=== PATIENT | female | born 1995 | race African-American/Black ===

== ENCOUNTER 2017-02-02 18:11 | Emergency (ER) | payer MEDICAID, OTHER ==
[2017-02-02 18:23] VITALS: BP 121/59
[2017-02-02] MEDS ORDERED: KETOROLAC TROMETHAMINE 60 MG/2 ML VIAL IM ONE ×2 (18:58→19:03)
[2017-02-02] MEDS ORDERED: CLINDAMYCIN PHOSPHATE 150 MG/ML VIAL IM ONE (18:58)
--- NOTE | 2017-02-02 19:07 | ERNOTE ---
Medical Problem HPI - Narrative Date of Service: 02/02/17 - General Chief Complaint: General Assessment Time Seen by Provider: 02/02/17 18:52 Source: patient Exam Limitations: no limitations - Immun/Allergies/Home Medications Immunizations: IMMUNIZATION HX Immunizations Up to Date Yes History of Influenza Vaccine Yes Allergies/Adverse Reactions: Allergies No Known Allergies Allergy (Verified 02/02/17 18:24) Home Medications: HOME MEDICATIONS Clindamycin HCl [Cleocin HCl] 300 mg PO Q6H #40 capsule 02/02/17 [Last Taken Unknown] Naproxen [Naprosyn] 500 mg PO BID PRN #60 tab 02/02/17 [Last Taken Unknown] - History of Present History Narrative: Pt. comes in with L mandibular pain and a lump behind her L ear on the L side. Pt. states that this has been bothering her for a week. Pt. denies any SOB, CP , NVD, but does state that she had a a recent illness with a sore throat and rhinorrhea, which pt. states has improved but she feels that she is having swelling in her throat still. Review of Systems - Review of Systems Constitutional: Present: no symptoms reported. Absent: recent illness, fever, chills, weakness, fatigue EYE: Present: no symptoms reported ENT: Present: other - painful lump behind L ear Respiratory: Present: no symptoms reported. Absent: shortness of breath, cough , orthopnea, wheezing Cardiology: Present: no symptoms reported. Absent: chest pain, palpitations Gastrointestinal/Abdominal: Present: no symptoms reported. Absent: nausea, vomiting, diarrhea Genitourinary: Present: no symptoms reported Musculoskeletal: Present: no symptoms reported. Absent: back pain, joint pain Skin: Present: lumps - behind L ear Neurological: Present: no symptoms reported. Absent: headache, dizziness/light- headedness, numbness, tingling All Other Systems: All systems neg except as marked - Patient's Past Medical History Patient History - Medical: Seizures Patient History - Cardiac/Respiratory: No pertinent hx Patient History - Cancer: No Hx of Cancer Patient History - Surgical Procedures: No surgical history - Social History Living Situations: home Smoking Status: Never smoker Patient requests Smoking Cessation Consult: No Initiate information on Smoking Cessation: No Alcohol Use: occasionally Drug Use: none - Immunizations Immunizations Up to Date: Yes History of Influenza Vaccine: Yes Physical Exam - Physical Exam General Appearance: Present: wd/wn, alert, no apparent distress Eye Exam: Normal inspection: bilateral, PERRL: bilateral, EOMI: bilateral Ears, Nose, Throat: Present: normal pharynx, other - dental fractures and caries L mandible with swelling of L mandible Neck: Present: lymphadenopathy (L) - post auricular lymphadenopathy. Respiratory: Present: no respiratory distress, normal breath sounds, no accessory muscle use, chest nontender, lungs clear Cardiovascular/Chest: Present: regular rate, rhythm, no murmur, normal peripheral pulses Gastrointestinal/Abdominal: Present: normal bowel sounds, nontender, nondistended, soft, no organomegaly Neurological Exam: Present: alert, oriented, normal mood/affect, no motor/ sensory deficits Skin Exam: Present: normal color, warm/dry. Absent: skin rash ED Progress - Vital Signs Patient's Vital Signs:: I have reviewed the patient's vital signs. Vital Signs: Vital Signs 02/02/17 18:19 Temperature 37 C Pulse Rate 81 Respiratory 20 Rate Blood Pressure 121/59 O2 Sat by Pulse 98 Oximetry - Progress/Reassessment Chief Complaint: General Assessment Departure - Departure Clinical Impression: Tooth abscess Disposition: Home self-care Condition: Good Instructions: Dental Abscess, [id number] Additional Instructions: Please follow up with dentist in 2-3 days. Prescriptions: Clindamycin HCl [Cleocin HCl] 300 mg PO Q6H #40 capsule Naproxen [Naprosyn] 500 mg PO BID PRN #60 tab PRN Reason: Pain
--- OUTSIDE RECORDS SUMMARY | 2017-02-02 19:18 | XMS REPORT | Continuity of Care Document ---
:1995 Author Organization [facility] ([facility]) Address [address] [place] [address] Phone [phone] Care Team Providers Name Role Phone Unavailable Primary Care Provider Unavailable Source Comments This disclosure is being made pursuant to the Care Everywhere program, applicable federal and state laws, and may not contain all informaitonavailable regarding this patient.[facility] ([facility]) Active Allergies and Adverse Reactions No Active Allergies Current Medications Not on file Active Problems Not on file Social History Tobacco Use Types Packs/Day Years Used Date Never Assessed Last Filed Vital Signs Vital Sign Reading Time Taken Blood Pressure 104/53 03/19/2004 2:50 PM CDT Pulse 72 03/19/2004 2:50 PM CDT Temperature 36.2 C (97.16 F) 03/19/2004 2:50 PM CDT Respiratory Rate 20 03/19/2004 2:50 PM CDT Height 1.398 m (4' 7.03") 03/19/2004 2:50 PM CDT Weight 41.899 kg (92 lb 5.9 oz) 03/19/2004 2:50 PM CDT Body Mass Index 21.44 03/19/2004 2:50 PM CDT Oxygen Saturation - - Plan of Care Health Maintenance Due Date Last Done Comments Hepatitis B Vaccine (1 of 3 - Primary Series) 1995 HPV Vaccine (1 of 3 - Female/Unknown 3 Dose Series) 2006 Tdap Vaccine 2006 Meningococcal Vaccine (1 of 1) 2011 Cervical Cancer Screening 2013 Lipid Disorder Screening 2013 MMR Vaccine 2013 Td Vaccine 2013 Varicella Vaccine (1 of 2 - Adult - No Evidence of 2013 Immunity) Influenza Vaccine: Seasonal (#1) 06/03/2016 Results from Last 3 Months Not on file
== END 2017-02-02 19:45 | disposition home or self-care (01) ==
LOC: ER 18:11
DX: K04.7 Periapical abscess without sinus (principal)

== ENCOUNTER 2017-02-07 19:25 | Emergency (ER) | payer OTHER ==
--- NOTE | 2017-02-07 20:11 | ERNOTE ---
Integumentary HPI - Narrative Date of Service: 02/07/17 - General Presenting Symptoms: rash - diffuse Time Seen by Provider: 02/07/17 20:10 Source: patient, other - significant other Exam Limitations: no limitations - Immun/Allergies/Home Medications Immunizations: IMMUNIZATION HX Immunizations Up to Date Yes History of Influenza Vaccine Yes Hx Pneumococcal Vaccination No Allergies/Adverse Reactions: Allergies Allergy/AdvReac Type Severity Reaction Status Date / Time No Known Allergies Allergy Verified 02/07/17 19:44 Home Medications: HOME MEDICATIONS Clindamycin HCl [Cleocin HCl] 300 mg PO Q6H #40 capsule 02/02/17 [Last Taken Unknown] Naproxen [Naprosyn] 500 mg PO BID PRN #60 tab 02/02/17 [Last Taken Unknown] Iron 18 mg PO DAILY 02/07/17 [Last Taken Unknown] Medroxyprogesterone Acetate [Depo-Provera Contraceptive] 150 mg IM Q3M 02/07/17 [Last Taken 12/04/16] Pnv95/Iron Fum/Folic Acid [ Tablet] 1 each PO DAILY 02/07/17 [Last Taken Unknown] Ranitidine HCl [Acid Railcar Brake Operator] 150 mg PO BID #30 tablet 02/07/17 [Last Taken Unknown] - History of Present Illness Narrative: Patient denies any untoward exposures and no pet exposures, no new products medication or topical or food exposures. Date (Duration): 02/04/17 Time (Timing): 08:00 Location: Reports: generalized Quality: Reports: itching - small papular lesions on arms, legs and torso spares hands Severity: mild Exposure: Reports: no cause identified. Denies: insect bite/spider - no pets in home, recent move to this new location, + ant problem Modifying Factors - (Improves): Reports: nothing Modifying Factors - (Worsens): Reports: nothing Associated Symptoms: Reports: rash Review of Systems - Narrative Narrative: New onset rash, Gaby and 1 other person in home has rash - Review of Systems Constitutional: Present: no symptoms reported EYE: Present: no symptoms reported ENT: Present: no symptoms reported Respiratory: Present: no symptoms reported Cardiology: Present: no symptoms reported Gastrointestinal/Abdominal: Present: no symptoms reported Genitourinary: Present: no symptoms reported, other - no lmp this month Musculoskeletal: Present: no symptoms reported Skin: Present: See HPI, rash Neurological: Present: no symptoms reported Endocrine: Present: no symptoms reported Hematologic/Lymphatic: Present: no symptoms reported Psych: Present: no symptoms reported All Other Systems: All systems neg except as marked - Narrative Narrative: Last lmp was January and now none Last Depoprovera was DecMarch 04. Denies other symptoms - Patient's Past Medical History Patient History - Medical: No pertinent hx, Seizures Patient History - Cardiac/Respiratory: No pertinent hx Patient History - Cancer: No Hx of Cancer Patient History - Surgical Procedures: No surgical history Patient History - Other: None LMP (females 10-50): 4 months - Social History Living Situations: home Psych History: No pertinent hx Smoking Status: Former smoker Have you smoked in the past 12 months: No Do you dip or chew tobacco: No Alcohol Use: occasionally Drug Use: none - Immunizations Immunizations Up to Date: Yes Hx Pneumococcal Vaccination: No History of Influenza Vaccine: Yes Physical Exam - Physical Exam General Appearance: Present: wd/wn, alert, no apparent distress Eye Exam: Normal inspection: bilateral, PERRL: bilateral, EOMI: bilateral Ears, Nose, Throat: Present: normal ENT inspection, normal pharynx Neck: Present: normal inspection, nontender Respiratory: Present: no respiratory distress, normal breath sounds, no accessory muscle use Cardiovascular/Chest: Present: regular rate, rhythm, no murmur Gastrointestinal/Abdominal: Present: normal bowel sounds, nontender, nondistended, soft Rectal Exam: Present: deferred Back Exam: Present: normal inspection Extremity Exam: Present: normal inspection, other - mild rash noted small red papular lesions noted Skin Exam: Present: normal color, warm/dry, skin rash - small papular rashes , other - no hives Pelvic Exam: Present: deferred ED Progress - Date and Time Seen: Date and Time: 02/07/17 20:30 Urine [facility] incase patient needs steroids - Results and Orders Patient's Lab Results:: I have reviewed the patient's lab results. Results and Orders: hcg : negative - Vital Signs Patient's Vital Signs:: I have reviewed the patient's vital signs. Vital Signs: Vital Signs 02/07/17 19:39 Temperature 36.0 C L Pulse Rate 88 Respiratory 18 Rate Blood Pressure 106/50 O2 Sat by Pulse 99 Oximetry - Progress/Reassessment Chief Complaint: Rash Progress:: Unchanged Plan - Plan Plan: Patient is stable for discharge : Recommended benadryl 25 mg to 50 mg Q6 hours prn itching or zantac 150mg BID HCG is negative no concerns for use of above medications. Departure Clinical Impression: Papular atopic dermatitis - Departure Disposition: Home self-care Condition: Good Instructions: Contact Dermatitis, [id number] Print Language: Italian Prescriptions: Ranitidine HCl [Acid Railcar Brake Operator] 150 mg PO BID #30 tablet
--- OUTSIDE RECORDS SUMMARY | 2017-02-07 20:28 | XMS REPORT | Continuity of Care Document ---
:1995 Author Organization [facility] ([facility]) Address [address] [place] [address] Phone [phone] Care Team Providers Name Role Phone Unavailable Primary Care Provider Unavailable Source Comments This disclosure is being made pursuant to the Care Everywhere program, applicable federal and state laws, and may not contain all informaitonavailable regarding this patient.[facility] ([facility]) Active Allergies and Adverse Reactions No [...]
[2017-02-07 21:41] VITALS: BP 106/73
== END 2017-02-07 20:40 | disposition home or self-care (01) ==
LOC: ER 19:25
DX: L20.89 Other atopic dermatitis (principal); Z87.891 Personal history of nicotine dependence

== ENCOUNTER 2017-06-07 18:12 | Emergency (ER) | payer OTHER ==
--- NOTE | 2017-06-07 18:40 | ERNOTE ---
Abdominal HPI - General Chief Complaint: Abdominal Pain Time Seen by Provider: 06/07/17 18:12 Source: patient Exam Limitations: no limitations - Immun/Allergies/Home Medications Immunizatons: IMMUNIZATION HX Immunizations Up to Date Yes History of Influenza Vaccine Yes Hx Pneumococcal Vaccination No Allergies/Adverse Reactions: Allergies No Known Allergies Allergy (Verified 06/07/17 18:22) Home Medications: HOME MEDICATIONS Naproxen [Naprosyn] 500 mg PO BID PRN #10 tablet 06/07/17 [Last Taken Unknown] - History of Present Illness Narrative: Here for heavy vaginal bleeding with clots. Denies any dizziness. Is not sure if she is Review of Systems - Review of Systems Constitutional: Present: no symptoms reported Respiratory: Present: no symptoms reported Cardiology: Present: no symptoms reported Gastrointestinal/Abdominal: Present: See HPI Genitourinary: Present: See HPI Musculoskeletal: Present: no symptoms reported Skin: Present: no symptoms reported - Patient's Past Medical History Patient History - Medical: No pertinent hx, Seizures Patient History - Cardiac/Respiratory: No pertinent hx Patient History - Cancer: No Hx of Cancer Patient History - Surgical Procedures: No surgical history Patient History - Other: None LMP (females 10-50): now - Social History Living Situations: home Abuse History: No History of abuse Psych History: No pertinent hx Smoking Status: Never smoker Alcohol Use: none Drug Use: none - Immunizations Immunizations Up to Date: Yes Hx Pneumococcal Vaccination: No History of Influenza Vaccine: Yes Physical Exam - Physical Exam General Appearance: Present: wd/wn, alert, no apparent distress Respiratory: Present: no respiratory distress, normal breath sounds, lungs clear Cardiovascular/Chest: Present: regular rate, rhythm, no murmur ED Progress - Results and Orders Patient's Lab Results:: I have reviewed the patient's lab results. - Vital Signs Patient's Vital Signs:: I have reviewed the patient's vital signs. Vital Signs: Vital Signs 06/07/17 06/07/17 18:17 18:30 Temperature 36.7 C Pulse Rate 81 72 Respiratory 16 Rate Blood Pressure 122/66 O2 Sat by Pulse 100 Oximetry - Progress/Reassessment Chief Complaint: Abdominal Pain Plan - Plan Plan: This patient's test is negative. Her hemoglobin and hematocrit is stable she does not have orthostatic hypotension and blood pressure lockhart she is stable. She is having a heavy period for which she will be given Naprosyn. Departure - Departure Clinical Impression: Menorrhagia Qualifiers: Menorrahagia type: with regular cycle Qualified Code(s): N92.0 - Excessive and frequent menstruation with regular cycle Disposition: Home self-care Condition: Good Instructions: Menorrhagia, Menorrhagia, [id number] Prescriptions: Naproxen [Naprosyn] 500 mg PO BID PRN #10 tablet PRN Reason: Pain
[2017-06-07 18:46] LABS: Hematocrit 38.8 % (37.0-47.0); Hemoglobin 12.2 gm/dL (12.5-16.0); Mean Cell Volume 82.9 fl (78-100); Mean Corpuscular Hemoglobin 26.1 pg (27-31); Mean Corpuscular Hgb Conc 31.4 g/dl (32-36); Mean Platelet Volume 11.3 fl (6.0-9.5); Neutrophil # 5.7 K/mm3 (1.3-6.0); Neutrophil % 64.2 % (42-75.0); Platelet Count 172 K/mm3 (150-450); Red Blood Count 4.68 M/mm3 (4.2-5.4); Red Cell Distribution Width 13.2 % (11.5-14.0); White Blood Count 8.8 K/mm3 (4.0-10.5)
[2017-06-07 21:54] VITALS: BP 124/70
== END 2017-06-07 19:13 | disposition home or self-care (01) ==
LOC: ER 18:12
DX: N92.0 Excessive and frequent menstruation with regular cycle (principal)

== ENCOUNTER 2017-07-16 13:03 | Emergency (ER) | payer OTHER ==
[2017-07-16 13:46] VITALS: BP 119/84
[2017-07-16 13:57] LABS: Urine Bilirubin Negative (NEGATIVE); Urine Blood Negative /ul (NEGATIVE); Urine Ketone 50 mg/dL (NEGATIVE); Urine Nitrite Negative (NEGATIVE); Urine Protein Negative (NEGATIVE); Urine Specific Gravity 1.025 SP.GR. (1.005-1.010); Urine Urobilinogen Normal (NORMAL)
--- NOTE | 2017-07-16 14:02 | ERNOTE ---
Abdominal HPI - Narrative Date of Service: 07/16/17 - General Chief Complaint: Abdominal Pain Time Seen by Provider: 07/16/17 13:37 Source: patient Exam Limitations: no limitations - Immun/Allergies/Home Medications Immunizatons: IMMUNIZATION HX Immunizations Up to Date Yes History of Influenza Vaccine Yes Hx Pneumococcal Vaccination No Allergies/Adverse Reactions: Allergies No Known Allergies Allergy (Verified 07/16/17 13:40) Home Medications: HOME MEDICATIONS NK [No Home Medication] 07/16/17 [Last Taken Unknown] - History of Present Illness Narrative: Pt. comes i with c/o LUQ pain and B flank pain that radiates to her back. Pt. states tath she has had this pain for 2 months and that she has not had a period in over a month and that she was nauseated until she took a test on Friday and it noted that she ws . Pt. denies any bleeding or discharge, fever, diarrhea, SOB, or CP. Pt. denies any aggravating factors but staes tath eating alleviates the pain. Review of Systems - Review of Systems Constitutional: Present: no symptoms reported. Absent: recent illness, fever, chills, weakness, fatigue, malaise EYE: Present: no symptoms reported ENT: Present: no symptoms reported Respiratory: Present: no symptoms reported. Absent: shortness of breath, cough , wheezing Cardiology: Present: no symptoms reported. Absent: chest pain, palpitations, edema Gastrointestinal/Abdominal: Present: nausea, vomiting, abdominal pain. Absent: diarrhea, constipation, eating less, drinking less Genitourinary: Present: no symptoms reported. Absent: frequency, decreased urinary output Musculoskeletal: Present: back pain - B flank Skin: Present: no symptoms reported. Absent: rash, change in color Neurological: Present: no symptoms reported All Other Systems: All systems neg except as marked - Patient's Past Medical History Patient History - Medical: Seizures Patient History - Cardiac/Respiratory: No pertinent hx Patient History - Cancer: No Hx of Cancer Patient History - Surgical Procedures: No surgical history Patient History - Other: None - Social History Living Situations: home Abuse History: No History of abuse Psych History: No pertinent hx Smoking Status: Never smoker Have you smoked in the past 12 months: No Alcohol Use: none Drug Use: none - Immunizations Immunizations Up to Date: Yes Hx Pneumococcal Vaccination: No History of Influenza Vaccine: Yes Physical Exam - Physical Exam General Appearance: Present: wd/wn, alert, no apparent distress Head Exam: Present: normal inspection, no evidence of injury Eye Exam: Normal inspection: bilateral, PERRL: bilateral, EOMI: bilateral Ears, Nose, Throat: Present: normal ENT inspection, normal pharynx Neck: Present: normal inspection, nontender. Absent: lymphadenopathy (R), lymphadenopathy (L) Respiratory: Present: no respiratory distress, normal breath sounds, no accessory muscle use, chest nontender, lungs clear Cardiovascular/Chest: Present: regular rate, rhythm, no murmur, normal peripheral pulses Gastrointestinal/Abdominal: Present: normal bowel sounds, nondistended, soft, no organomegaly, tenderness - LUQ Back Exam: Present: normal inspection, normal range of motion, no CVA tenderness , no vertebral tenderness Extremity Exam: Present: normal inspection, non-tender, normal range of motion, no edema Neurological Exam: Present: alert, oriented, normal mood/affect, no motor/ sensory deficits Skin Exam: Present: normal color, warm/dry. Absent: pallor, skin rash ED Progress - Date and Time Seen: Date and Time: 07/16/17 14:52 pt. unhappy that I am waiting for lab test to perform ultrasound because she "has things to do" and she just wanted a test and ultrasound. Tried explaining to pt. that I needed Beta HCG levels to determine if Ultrasound would be useful and then I would decide if she needed ultrasound but if her Beta HCG levels noted that she is enough for a possible ectopic complication that I would perform an ultrasound to rule this out. But pt. insists on leaving. Signed out AMA. - Vital Signs Patient's Vital Signs:: I have reviewed the patient's vital signs. Vital Signs: Vital Signs 07/16/17 13:35 Temperature 36.3 C L Pulse Rate 86 Respiratory 14 Rate Blood Pressure 119/84 O2 Sat by Pulse 98 Oximetry - Progress/Reassessment Chief Complaint: Abdominal Pain Departure - Departure Clinical Impression: Abdominal pain affecting , antepartum Disposition: Against medical advice
[2017-07-16] MEDS ORDERED: MAG HYDROX/ALUMINUM HYD/SIMETH 30 ML UDC PO ONE (14:03)
[2017-07-16 14:21] LABS: Hematocrit 37.6 % (37.0-47.0); Hemoglobin 12.4 gm/dL (12.5-16.0); Mean Cell Volume 80.9 fl (78-100); Mean Corpuscular Hemoglobin 26.7 pg (27-31); Mean Platelet Volume 10.9 fl (6.0-9.5); Neutrophil # 5.3 K/mm3 (1.3-6.0); Neutrophil % 66.2 % (42-75.0); Platelet Count 181 K/mm3 (150-450); Red Blood Count 4.65 M/mm3 (4.2-5.4); Red Cell Distribution Width 13.3 % (11.5-14.0)
[2017-07-16 14:27] LABS: Urine Appearance Slightly Cloudy; Urine Bacteria 4+; Urine Color Yellow; Urine RBC None Seen /hpf (0-5); Urine WBC None Seen /hpf (0-5)
[2017-07-16 14:33] LABS: Albumin * 3.9 gm/dl (3.4-5.0); Anion Gap 15.1 mmol/L (6.8-13.8); BUN/Creatinine Ratio 14.5 (9.0-21.6); Bilirubin, Total 0.4 mg/dL (0.0-1.1); Ca. Corrected For Albumin 8.8 mg/dL (8.4-10.2); Carbon Dioxide 22.5 mmol/L (24-32.6); Potassium 3.6 mmol/L (3.4-4.6); Total Protein 7.9 gm/dL (6.2-8.2)
== END 2017-07-16 14:53 | disposition left against medical advice (07) ==
LOC: ER 13:03
DX: O26.899 Other specified pregnancy related conditions, unspecified trimester (principal); R10.9 Unspecified abdominal pain; Z53.29 Procedure and treatment not carried out because of patient's decision for other reasons; Z3A.00 Weeks of gestation of pregnancy not specified

== ENCOUNTER 2017-07-20 14:53 | Emergency (ER) | payer OTHER ==
[2017-07-20] MEDS ORDERED: BISACODYL 10 MG SUPP.RECT RC ONE ×2 (15:27→15:33)
--- NOTE | 2017-07-20 15:39 | ERNOTE ---
Abdominal HPI - Narrative Date of Service: 07/20/17 - General Chief Complaint: Abdominal Pain Time Seen by Provider: 07/20/17 15:15 Source: patient - Immun/Allergies/Home Medications Immunizatons: IMMUNIZATION HX Immunizations Up to Date Yes History of Influenza Vaccine Yes Hx Pneumococcal Vaccination No Allergies/Adverse Reactions: Allergies No Known Allergies Allergy (Verified 07/20/17 15:13) Home Medications: HOME MEDICATIONS NK [No Home Medication] 07/16/17 [Last Taken Unknown] - History of Present Illness Narrative: patient states she has 3 episodes of a cramp below her left rib cage today, she states cramping last about 20-30 second and then disappears. She also states that she has only had 1 small hard BM in the last 3 days. patient states it was 3 small little balls that she was able to pass. patient states she needs to drink more water. patient states she sat on the toilet for 15 in order to have a BM and nothing happened today. patient told me she may be constipated but is unsure of what she can have because she found out recently she was . Date (Duration): 07/20/17 - Timing: intermittent Quality: cramping Activities at Onset: none Modifying Factors - (Improves): Present: defecating Associated Symptoms: Present: denies symptoms Prior Abdominal Problems: Present: none Review of Systems - Review of Systems Constitutional: Present: no symptoms reported EYE: Present: no symptoms reported ENT: Present: no symptoms reported Respiratory: Present: no symptoms reported Cardiology: Present: no symptoms reported Gastrointestinal/Abdominal: Present: See HPI, constipation, drinking less Genitourinary: Present: no symptoms reported Musculoskeletal: Present: no symptoms reported Skin: Present: no symptoms reported Neurological: Present: no symptoms reported Endocrine: Present: no symptoms reported Hematologic/Lymphatic: Present: no symptoms reported Psych: Present: no symptoms reported All Other Systems: All systems neg except as marked - Patient's Past Medical History Patient History - Medical: Seizures Patient History - Cardiac/Respiratory: No pertinent hx Patient History - Cancer: No Hx of Cancer Patient History - Surgical Procedures: No surgical history Patient History - Other: None LMP (females 10-50): 2 months - Social History Living Situations: alone Abuse History: No History of abuse Psych History: No pertinent hx Smoking Status: Never smoker Have you smoked in the past 12 months: No Do you dip or chew tobacco: No Alcohol Use: none Drug Use: none - Immunizations Immunizations Up to Date: Yes Hx Pneumococcal Vaccination: No History of Influenza Vaccine: Yes Physical Exam - Physical Exam General Appearance: Present: wd/wn, alert, no apparent distress Head Exam: Present: normal inspection, no evidence of injury Eye Exam: Normal inspection: bilateral Ears, Nose, Throat: Present: normal ENT inspection, normal pharynx Neck: Present: normal inspection, nontender, supple, full range of motion Respiratory: Present: no respiratory distress, normal breath sounds, no accessory muscle use, chest nontender, lungs clear Cardiovascular/Chest: Present: regular rate, rhythm, no murmur, normal peripheral pulses Peripheral Pulses: N=norm/S=strong/W=weak/B=bound/A=absent: Radial (R): Normal, Radial (L): Normal, Dorsalis-pedis (R): Normal, Dorsalis-pedis (L): Normal Gastrointestinal/Abdominal: Present: nontender, nondistended, soft, no organomegaly, abnormal bowel sounds - hypoactive. Absent: guarding, rebound, McBurney sign, Obturator sign, Niño sign, Psoas sign Rectal Exam: Present: nontender, normal rectal tone Back Exam: Present: normal inspection, normal range of motion, no CVA tenderness , no vertebral tenderness Extremity Exam: Present: normal inspection, non-tender, normal range of motion, no edema Neurological Exam: Present: alert, oriented, normal mood/affect, no motor/ sensory deficits Skin Exam: Present: normal color, warm/dry Lymphatic Exam: Present: no adenopathy ED Progress - Vital Signs Vital Signs: Vital Signs 07/20/17 07/20/17 14:54 15:07 Temperature 36.6 C 36.6 C Pulse Rate 85 Respiratory 18 Rate Blood Pressure 124/70 117/76 O2 Sat by Pulse 99 Oximetry - Progress/Reassessment Chief Complaint: Abdominal Pain Plan - Plan Plan: patient given a suppository, she had a large BM while in ED. She states she feels better. Patient states that prunes do help her have a Bm and she will start eating them to help her with her constipation. Departure - Departure Clinical Impression: Constipation Qualifiers: Constipation type: unspecified constipation type Qualified Code(s): K59.00 - Constipation, unspecified Disposition: Home self-care Condition: Stable Instructions: Constipation, Adult, [id number] Additional Instructions: Continue previous home medications as previously directed. Follow-up with her primary care provider in the next his days if needed. Return to the emergency room if symptoms return or persist. Drink plenty of fluids such as water.
[2017-07-20 16:26] VITALS: BP 122/74
== END 2017-07-20 16:26 | disposition home or self-care (01) ==
LOC: ER 14:53
DX: K59.00 Constipation, unspecified (principal); Z33.1 Pregnant state, incidental